=== PATIENT | male | born 1960 | race Caucasian/White ===

== ENCOUNTER 2019-01-30 01:33 | Emergency (ER) | payer BC, OTHER ==
[~2019-01-30] VITALS: Ht 185.4 cm; Wt 88.5 kg
[~2019-01-30 01:33] MED LIST: CYCLOBENZAPRINE5 MG PO; GENTAMICIN SULFA5 ML OD; HYDROCODON-ACE1 EA10 PO; NORCO 10-325 T1 EACH PO
--- OUTSIDE RECORDS SUMMARY | 2019-01-30 01:36 | XMS ---
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 Fabian VISIT COUNT (12 MO.) 1 [facility]urt TOTAL 1 NOTE: Visits indicate total known visits. ED/UCC VISIT TRACKING (12 MO.) 01/30/2019 01:34 [facility] OR TYPE: Emergency COMPLAINT: - POST OP PROBLEM INPATIENT VISIT TRACKING (12 MO.) No inpatient visits to display in this time frame [email or web address]
--- NOTE | 2019-01-30 06:44 | EKG ---
[facility] [address] [facility] [place] [address] Signed Sinus bradycardia RSR' or QR pattern in V1 suggests right ventricular conduction delay Junctional ST depression, probably normal Borderline ECG No previous ECGs available Confirmed by YAN JONES MD ([id number]) on 01/30/2019 6:44:46 AM Electronically Signed By: YAN JONES MD 01/30/19 0644 PATIENT NAME: MAEGAN NIEVES Electrocardiogram DATE OF : 64 PHYSICIAN: YAN JONES MD REPORT #: [id number] REPORT IS CONFIDENTIAL AND NOT TO BE RELEASED WITHOUT AUTHORIZATION
== END 2019-01-30 03:38 | disposition home or self-care (01) ==
LOC: ED 01:33
DX: R07.9 Chest pain, unspecified (principal); F17.200 Nicotine dependence, unspecified, uncomplicated
CPT/HCPCS: 71045; 71260; 80053; 83735; 84443; 84484; 85025; 85379; 93005; 93010; 99285-25; J2405; Q9967